=== PATIENT | female | born 1985 | race Caucasian/White ===

== ENCOUNTER 2020-08-03 17:03 | Outpatient (CLI) | payer OTHER, SELFPAY ==
--- NOTE | ~2020-08-03 | US_ITS ---
EXAMINATION: US venous doppler LE RT DATE: 08/03/2020 17:35 INDICATION: Right lower limb pain and swelling TECHNIQUE: Grayscale ultrasound images without and with compression and Doppler ultrasound images of the right lower extremity veins were obtained. COMPARISON: None. FINDINGS: The visualized portions of right common femoral vein, profunda (deep) femoral vein, femoral vein, pop liteal vein, peroneal trunk, posterior tibial veins, peroneal veins, gastrocnemius vein and greater s aphenous vein outflow are patent. IMPRESSION: 1. No deep venous thrombosis in the right lower limb. Reviewed, dictated and finalized at location A.
== END 2020-08-03 17:04 | disposition home or self-care (01) ==
PROVIDERS: PCP Family Medicine; Visit Provider Family Medicine
DX: R22.9 Localized swelling, mass and lump, unspecified (principal)
CPT/HCPCS: 93971

== ENCOUNTER 2020-08-16 18:48 | Emergency (ER) | payer BC, OTHER, SELFPAY ==
--- NOTE | ~2020-08-16 | CT_ITS ---
EXAMINATION: CT abdomen pelvis w con EXAM DATE: 08/16/2020 21:13 INDICATION: Low abdominal pain for 2 weeks. TECHNIQUE: Spiral CT of the abdomen and pelvis was performed following intravenous injection of 100 m L Omnipaque 350. Axial, coronal and sagittal images of the abdomen and pelvis were reviewed. The do se-length product (DLP) for this examination was 758.67 mGy-cm. The exposure was tailored according to patient size (auto mA exposure control), and iterative reconstruction (ASIR) was used as additiona l dose reduction technique. There is no prior study for comparison. FINDINGS: The liver, spleen, adrenal glands and pancreas are unremarkable. Gallbladder is unremarkab le. No biliary obstruction. Portal and splenic veins are patent. Kidneys enhance symmetrically. T here is no hydronephrosis. The uterus is not identified and has likely been surgically resected. T he bladder is unremarkable. There is no retroperitoneal or pelvic lymphadenopathy. Tiny umbilical fat-containing hernia. There are no findings to suggest appendicitis. The stomach and small bowel are unremarkable. There is expected amount of colonic stool. No free intraperitoneal gas. The heart is normal in size. T here are no pericardial or pleural effusions. The lung bases are unremarkable. The bones are unrema rkable. IMPRESSION: 1. No acute intra-abdominal findings. Reviewed, dictated and finalized at location A.
[2020-08-16 18:56] VITALS: BP 131/61; PULSE 65; RESP 16; TEMP 36.5; O2SAT 100
[2020-08-16 19:16] LABS: Basophils Percent Auto 0.4 % (0.2-1.2); Eosinophils Absolute Auto 0.2 K/mm3 (0-0.3); Eosinophils Percent Auto 2.1 % (0-4.4); Hematocrit 36.7 % (37.0-47.0); Hemoglobin 12.1 g/dL (12.0-15.0); Immature Granulocyte Absolute 0.02 K/mm3 (0.00-0.031); Immature Granulocyte Percent A 0.2 % (0-0.5); Lymphocytes Absolute Auto 2.71 K/mm3 (0.9-3.2); Lymphocytes Percent Auto 27.4 % (18.3-44.2); Mean Corpuscular Hemoglobin 29.3 pg (26-34); Mean Corpuscular Volume 88.9 fl (80-100); Mean Platelet Volume 10.5 fl (7.4-10.4); Monocytes Absolute Auto 0.7 K/mm3 (0.1-0.6); Monocytes Percent Auto 6.8 % (2.6-8.5); Neutrophils Absolute Auto 6.2 K/mm3 (1.3-6.7); Neutrophils Percent Auto 63.1 % (45.5-73.1); Platelet Count Result 278 k/mm3 (150-375); Red Blood Count 4.13 M/mm3 (4.2-5.4); Red Cell Distribution Width 12.1 % (11.5-14.5); White Blood Count 9.9 K/mm3 (4.5-10.0)
[2020-08-16 19:20] LABS: Add Urine Microscopic? NO; Appearance Urine Clear (Clear); Bilirubin Urine Negative (Negative); Blood Urine Negative (Negative); Color Urine Yellow (Yellow); Glucose Urine UA Negative (Negative); Ketones Urine Negative (Negative); Leukocyte Esterase Ur Negative LEU/UL (Negative); Nitrate Urine Negative (Negative); Protein Urine Negative (Negative); Specific Grav Ur 1.016 (1.001-1.035); Urobilinogen Urine Negative mg/dL (<2.0)
[2020-08-16 19:27] LABS: Alanine Aminotransferase 20 U/L (4-35); Alkaline Phosphatase 51 U/L (38-126); Anion Gap 3 mmol/L (8-16); Aspartate Amino Transferase 26 U/L (14-36); Bilirubin,Total 0.2 mg/dL (0.2-1.3); Blood Urea Nitrogen 11 mg/dL (7-17); Calcium 9.1 mg/dL (8.4-10.2); Carbon Dioxide 29 mmol/L (22-30); Chloride 105 mmol/L (98-107); Estimated CRCL calculation 95 ml/min; Estimated Glomerular Filt Rate > 60; Glucose 93 mg/dL (65-105); Lipase 54 U/L (23-300); Sodium 137 mmol/L (137-145)
--- NOTE | 2020-08-16 22:37 | ED.ABDPAIN ---
HPI - Abdominal Pain General Chief Complaint: Abdominal Pain Stated Complaint: abd pain Time Seen by Provider: 08/16/20 20:00 History of Present Illness HPI narrative: Patient is a 35-year-old female who presents ER with crampy lower abdominal pain. Ongoing for several weeks but worsening today. Begins in her lower abdomen and went up into her epigastrium. She then started evolving crampy pain in the right upper quadrant. She contacted her PCP who is going to try to arrange an outpatient CT but was unable to get it performed so he sent her to the ER for further evaluation. Patient has no fevers or chills or sweats. She is without nausea/vomiting. She reports normal bowel movements. No vaginal bleeding or discharge. No aggravating alleviating factors that she is noted. Related Data Allergies Allergy/AdvReac Type Severity Reaction Status Date / Time latex Allergy Unknown RASH AND Verified 04/30/18 14:12 DISCOMFORT Review of Systems Review of Systems: All systems reviewed & are unremarkable except as noted in HPI and below Constitutional: Constitutional: Denies chills, Denies fever(s) and Denies weakness ENT: Denies nasal congestion and Denies sore throat Cardiovascular: Cardiovascular: Denies chest pain and Denies radiating jaw, neck or arm pain Gastrointestinal: Gastrointestinal: Reports abdominal pain, Denies constipation, Denies diarrhea, Denies nausea and Denies vomiting Genitourinary: Genitourinary: Denies nocturia, Denies dysuria and Denies flank pain PMFSH Past Medical History Medical History (Updated 08/16/20 @ 22:42 by Vitor Gonzalez MD) Healthy female adult Surgical History Surgical History (Updated 08/16/20 @ 22:40 by Vitor Gonzalez MD) No pertinent past surgical history Social History Social History (Updated 08/16/20 @ 22:40 by Vitor Gonzalez MD) Smoking status: Never smoker Exam Narrative: Exam Narrative: GENERAL: Well-appearing, well-nourished, and in no acute distress. HEAD: Normocephalic, atraumatic. ENT: Mucous membranes moist. CHEST: Clear to auscultation. No respiratory distress. HEART: Regular rate and rhythm. Normal peripheral pulses. ABDOMEN: Soft, nontender, nondistended. EXTREMITIES: Normal range of motion. No edema. SKIN: Warm, dry, no rash. NEURO:Alert and oriented x3. Course Course Emergency Course: Patient resting comfortably. Informed results. Discharge home. Vital Signs Vital signs: Vital Signs Temperature 97.7 F 08/16/20 18:56 Pulse Rate 65 08/16/20 18:56 Respiratory Rate 16 08/16/20 18:56 Blood Pressure 131/61 08/16/20 18:56 Pulse Oximetry 100 08/16/20 18:56 Temperature 97.7 F 08/16/20 18:56 Pulse Rate 65 08/16/20 18:56 Respiratory Rate 16 08/16/20 18:56 Blood Pressure 131/61 08/16/20 18:56 Pulse Oximetry 100 08/16/20 18:56 MDM - Abdominal Pain Lab Data Result diagrams: 08/16/20 19:07 08/16/20 19:07 Labs: Lab Results 08/16/20 08/16/20 08/16/20 Range/Units 19:07 19:07 19:07 WBC 9.9 (4.5-10.0) K/mm3 RBC 4.13 L (4.2-5.4) M/mm3 Hgb 12.1 (12.0-15.0) g/dL Hct 36.7 L (37.0-47.0) % MCV 88.9 (80-100) fl MCH 29.3 (26-34) pg MCHC 33.0 (32-36) g/dl RDW 12.1 (11.5-14.5) % Plt Count 278 (150-375) k/mm3 MPV 10.5 H (7.4-10.4) fl Immature Gran % (Auto) 0.2 (0-0.5) % Neut % (Auto) 63.1 (45.5-73.1) % Lymph % (Auto) 27.4 (18.3-44.2) % Thayer % (Auto) 6.8 (2.6-8.5) % Eos % (Auto) 2.1 (0-4.4) % Baso % (Auto) 0.4 (0.2-1.2) % Lymph # (Auto) 2.71 (0.9-3.2) K/mm3 Thayer # (Auto) 0.7 H (0.1-0.6) K/mm3 Eos # (Auto) 0.2 (0-0.3) K/mm3 Baso # (Auto) 0.0 (0.0-0.1) K/mm3 Abs Immat Gran (auto) 0.02 (0.00-0.031) K/mm3 Absolute Neuts (auto) 6.2 (1.3-6.7) K/mm3 Absolute Nucleated RBC 0.0 (0.0-0.012) K/mm3 Nucleated RBC % 0.0 (0.0-0.2) % Sodium 137 (137-145) mmol/L [place]
[2020-08-16 23:07] VITALS: BP 128/79; PULSE 78; RESP 16; TEMP 36.6; O2SAT 98
== END 2020-08-16 23:08 | disposition home or self-care (01) ==
PROVIDERS: Emergency Provider Emergency Medicine; PCP Family Medicine
DX: R10.30 Lower abdominal pain, unspecified (principal)
CPT/HCPCS: 36415; 74177; 80053; 81003; 81025; 83690; 85025; 99284; Q9967

== ENCOUNTER 2022-05-14 08:52 | Outpatient (CLI) | payer MEDICAID, SELFPAY ==
--- NOTE | ~2022-05-14 | XR_ITS ---
Lumbosacral Spine: AP and lateral views Clinical History: Pain Findings: The normal lordotic curve is maintained. The vertebral bodies and posterior elements are i ntact. The intervertebral disc spaces are preserved. The sacroiliac joints are normally outlined. Impression: No significant abnormality. Reviewed, dictated and finalized at [facility]. [employer] Impression: No significant abnormality.
--- NOTE | ~2022-05-14 | XR_ITS ---
EXAMINATION: XR scoliosis survey DATE: 05/14/2022 09:36 INDICATION: Chronic low back pain without sciatica. TECHNIQUE: Anteroposterior and lateral views of the entire spine standing with breast gomez were ob tained. COMPARISON: CT abdomen and pelvis 08/16/2020 FINDINGS: Right femoral head stands 2 mm higher than the left. There are 12 pairs of ribs. L5 is a tr ansitional segment. There is mild chronic anterior wedging of T5-T10 vertebral bodies associated with Schmorl's nodes. There is kyphosis of thoracic spine. There is 7 degrees levocurvature from T7 to T1 2 by the Parada method. There is 8 degrees dextrocurvature from T12 to L3. IMPRESSION: 1. 7 degrees levocurvature from T7 to T12 and 8 degrees dextrocurvature from T12 to L3. 2. Scheuermann disease. Reviewed, dictated and finalized at location A. [employer] TEACHER IMPRESSION: 1. 7 degrees levocurvature from T7 to T12 and 8 degrees dextrocurvature from T1 2 to L3. 2. Scheuermann disease.
== END 2022-05-14 08:53 | disposition home or self-care (01) ==
PROVIDERS: PCP Family Medicine; Visit Provider Family Medicine
DX: M54.50 Low back pain, unspecified (principal); G89.29 Other chronic pain; M42.00 Juvenile osteochondrosis of spine, site unspecified
CPT/HCPCS: 72082; 72100

== ENCOUNTER 2022-08-13 10:00 | Outpatient (RCR) | payer MEDICAID, OTHER, SELFPAY ==
--- NOTE | 2022-06-04 13:48 | PTOPEVAL1 ---
Assessment and note entered by Zeina Irving DPT Evaluation Information Assessment Status Evaluation Subjective Information Pt reports pelvic floor issues that she has been having to push off for awhile. Has shooting pains, often associated with her period. Highest pain 10 /10 and lowest 0/10. Pain has been worsening over the past year. Difficulty/pain using a tampon, having sex and sitting on the toilet. Discomfort with pap smear. Urinates 4 times a day and none at night. No pain with urination. Daily urine leakage, with sneeze, coughing, laughing, lifting her children, exercise. Can be up to her full bladder. BM every couple days, pain every time. Pt has been 2 times, 2 vaginal deliveries without complications. No other H[employer] C[employer]TER surgeries or issues. Also reports back pain and has a diagnosis of scoliosis. Pain/difficulty with activities like shoveling snow. Feels a burning sensation in her central low back that has radiated down her right inner thigh. Highest pain 6/10 and lowest 0/ 10. No return to MD scheduled. Reported Pain Level Pain Score 0: Self Report Assessment PT Clinical Summary The patient is presenting to skilled therapy with a history of progressing pelvic floor pain and incontinence as well as low back pain. She presents with decreased pelvic floor strength and endurance, decreased hip/core strength, and increased pelvic floor muscle tone which are contributing to her pain and difficulty with activities like using a tampon and sitting on the toilet as well as her daily incontinence. She will highly benefit from therapy to address these impairments and safely reduce pain and incontinence. Plan of Care Interventions Electrical Stimulation,Hot Pack/Cold Pack,Manual Therapy,Neuro Re-education,Patient/Caregiver Education,Therapeutic Activities,Therapeutic Exercise,Self-Care/Home Management PT Services Indicated Yes Treatment Frequency and 1 time a week for 4 weeks Duration These treatments will address the objective and functional deficits as defined above. The patient will be advanced safely and appropriately in order for the patient to progress towards his/her prior level of function. Additional exercises will be introduced and as well as a comprehensive home exercise program upon discharge, if needed, ?to ensure carryover of functional gains achieved in the clinic. This treatment plan has been reviewed and agreement upon by the patient.
--- NOTE | 2022-07-03 10:46 | PTOPPROG ---
Assessment and note entered by Zeina Irving DPT Evaluation Information Assessment Status Progress Subjective Information Pt reports no pain starting therapy. Highest pain in last week 0/10. Has been on cycle without pain as well. Some improvements with incontinence, 2 times in the last week with exercise but is now only with jumping movements and is a smaller volume. Voiding 4 times a day, 0-1 times at night. Assessment PT Clinical Summary The patient has made excellent progress in therapy . She reports no real pain in the last week and no pain on exam. She reports decreased volume and frequency of incontinence but continues to notice it with exercise. Due to her progress but continued incontinence, plan to continue therapy to further improve strength and decrease incontinence. Plan of Care Interventions Hot Pack/Cold Pack,Manual Therapy,Neuro Re- education,Patient/Caregiver Education,Therapeutic Activities,Therapeutic Exercise,Self-Care/Home Management PT Services Indicated Yes Treatment Frequency and 1 time every other week for 3 visits Duration These treatments will address the objective and functional deficits as defined above. The patient will be advanced safely and appropriately in order for the patient to progress towards his/her prior level of function. Additional exercises will be introduced and as well as a comprehensive home exercise program upon discharge, if needed, ?to ensure carryover of functional gains achieved in the clinic. This treatment plan has been reviewed and agreement upon by the patient.
--- NOTE | 2022-08-13 10:23 | PTOPDC ---
Assessment and note entered by Zeina Irving DPT Evaluation Information Assessment Status Discharge Subjective Information Pt reports no recent pain, none since her last cycle. Pt reports she has not had any incontinence in at least a week. Occurred with sneezing multiple times in a row. Pt reports she does not feel limited with anything at this point. Reported Pain Level Pain Score 0: Self Report Assessment PT Clinical Summary The patient has made excellent progress in therapy . She reports no pain in several weeks and no incontinence in at least a week. She is able to do all typical activities without limitation. She demonstrates improved pelvic floor endurance as well. Due to her progress, discharge is recommended at this time. She has been educated to continue her HEP and follow up with MD and/or PT as needed. Plan of Care PT Services Indicated No
== END 2022-08-13 14:20 | disposition home or self-care (01) ==
LOC: ANHGOSHPT 10:00
PROVIDERS: PCP Family Medicine; Visit Provider Family Medicine
DX: M41.9 Scoliosis, unspecified (principal)
CPT/HCPCS: 97110; 97112; 97162

== ENCOUNTER 2023-05-15 17:02 | Outpatient (CLI) | payer OTHER, SELFPAY ==
--- NOTE | ~2023-05-15 | XR_ITS ---
EXAMINATION: XR abdomen/kub 1V DATE: 05/15/2023 17:19 INDICATION: Abdominal pain. Constipation. TECHNIQUE: A supine view of the abdomen on 2 radiographs was obtained. COMPARISON: CT abdomen and pelvis 08/16/2020 FINDINGS: There are no dilated loops of bowel. There is a moderate volume of stool in the colon. IMPRESSION: 1. Nonobstructive bowel gas pattern. Reviewed, dictated and finalized at location E. [employer] MAKER
== END 2023-05-15 17:03 | disposition home or self-care (01) ==
LOC: ANHIMG 17:03
PROVIDERS: PCP Family Medicine; Visit Provider Family Medicine
DX: R10.13 Epigastric pain (principal); K59.00 Constipation, unspecified
CPT/HCPCS: 74018